=== PATIENT | female | born 1995 | race Caucasian/White ===

== ENCOUNTER → 2016-07-09 | Outpatient (CLI) | payer OTHER | LOC: RAD 16:11 | PROVIDERS: ATTEND Physician Assistant | DX: N92.1 Excessive and frequent menstruation with irregular cycle (principal) | CPT/HCPCS: 76830; 76856 ==

== ENCOUNTER 2016-09-29 06:34 | Day surgery (SDC) | payer OTHER ==
[2016-09-23 11:40] LABS: HEMATOCRIT 42.3 % (36.0-47.0); HEMOGLOBIN 14.3 g/dL (12.0-15.5); HGB HCT DIFFERENCE 0.6; MEAN CORPUSCULAR HEMOGLOBIN 29.3 pg (27.0-33.4); MEAN CORPUSCULAR HGB CONC 33.7 g/dL (32.0-36.0); MEAN CORPUSCULAR VOLUME 87 fl (80-97); RED BLOOD COUNT 4.87 10^6/uL (3.72-5.28); RED CELL DISTRIBUTION WIDTH 13.1 % (11.5-14.0); WHITE BLOOD COUNT 9.4 10^3/uL (4.0-10.5)
[2016-09-23 11:45] LABS: APPEARANCE,URINE SLIGHTLY-CLOUDY; BILIRUBIN,URINE NEGATIVE (NEGATIVE); GLUCOSE, URINE NEGATIVE (NEGATIVE); KETONES,URINE NEGATIVE (NEGATIVE); LEUKOCYTE ESTERASE,URINE MODERATE (NEGATIVE); NITRITE,URINE NEGATIVE (NEGATIVE); PROTEIN,URINE NEGATIVE (NEGATIVE); URINE SPECIFIC GRAVITY 1.019; UROBILINOGEN,URINE NEGATIVE mg/dL (<2.0)
[2016-09-23 12:32] LABS: THYROID STIMULATING HORMONE 2.53 uIU/mL (0.47-4.68)
[~2016-09-29 06:34] MED LIST: LACTATED RINGERS 1000 ML IV PRN; LIDOCAINE 0.5% INJ-PF (5 MG/ML) 50 ML SDV SUBCUT PRN
[2016-09-29] MEDS ORDERED: FENTANYL CITRATE INJ/PF 100 MCG/2 ML AMPUL ONE ×3 (08:17→09:44)
[2016-09-29] MEDS ORDERED: MIDAZOLAM 2 MG/2 ML INJ ONE (08:17)
[2016-09-29] MEDS ORDERED: PROPOFOL INJ 200 MG/20 ML VIAL IV ONE (08:17)
[2016-09-29] MEDS ORDERED: MEPERIDINE HCL/PF INJ 25 MG/1 ML DISP.SYRIN IV PRN (08:48)
[2016-09-29] MEDS ORDERED: ONDANSETRON HCL INJ/PF 4 MG/2 ML SDV IV PRN (08:48)
[2016-09-29] MEDS ORDERED: OXYCODONE-ACETAMINOPHEN 5-325 MG TABLET PO PRN ×4 (08:48→09:46)
[2016-09-29] MEDS ORDERED: DIPHENHYDRAMINE HCL 50 MG/ML VIAL IV PRN (08:48)
[2016-09-29] MEDS ORDERED: PROMETHAZINE HCL INJ 25 MG/1 ML VIAL IV PRN ×2 (08:48)
[2016-09-29] MEDS ORDERED: MORPHINE SULFATE 10 MG/ML INJ IV PRN (08:48)
[2016-09-29] MEDS ORDERED: FENTANYL CITRATE INJ/PF 100 MCG/2 ML AMPUL IV PRN ×3 (08:48)
[2016-09-29] MEDS: FENTANYL CITRATE INJ/PF 100 MCG/2 ML AMPUL ONE ×2 (09:30→09:35)
[2016-09-29] MEDS ORDERED: ACETAMINOPHEN 100 ML IV ONE (09:38)
--- NOTE | 2016-09-29 09:38 | OPERATIVE REPORT E ---
Operative Report NAME: KENDRICK PAUL : 1995 AGE: 21Y DATE OF SURGERY: 09/29/2016 ROOM: PREOPERATIVE DIAGNOSIS: Abnormal uterine bleeding refractory to medical management. POSTOPERATIVE DIAGNOSIS: Abnormal uterine bleeding refractory to medical management. OPERATION: 1. Hysteroscope. 2. D and C. SURGEON: FIDEL PORTILLO M.D. ANESTHESIA: Dr. Basilio with LMA. SPECIMENS REMOVED: Endometrial curettage. FINDINGS: Minimal endometrium with a uterine cavity that measured to 8 cm. COMPLICATIONS: None. ESTIMATED BLOOD LOSS: Was 10 mL. PROCEDURE IN DETAIL: The patient was taken to the operating room, prepared, and draped in normal sterile fashion in the dorsal lithotomy position. Under sterile conditions, the in and out cath was performed of approximately 100 mL of clear urine. A sterile speculum was then placed into the vagina and the cervix was prepped with Betadine. The cervix was then grasped on the anterior lip with a single-tooth tenaculum and uterine sound measured the uterus to approximately 8 cm. The cervix was then dilated up to 6 mm, and the hysteroscope was introduced with the above findings noted. Very little endometrium present. The endometrial cavity was very smooth and did not show any representation of malignancy at all. There was no rugation to the endometrial cavity and in fact, again, rodríguez were quite smooth so a decision was made to not do the MyoSure as I felt that this would probably not be fruitful based on the appearance of the endometrial cavity. However, I did do a relatively aggressive endometrial curettage with a Kevorkian curette with 3 passes. Hysteroscope was then reintroduced and the endometrial cavity was inspected once more with similar findings, but evidence of the curettage present, but no perforation and no evidence of uncontrolled bleeding. Instruments were then removed. Patient tolerated the procedure well. Sponge, lap, and needle counts were correct x2, and the patient was taken PACU in stable condition. DICTATING PHYSICIAN: FIDEL PORTILLO M.D. [id number] PHY#: [id number] ID: [id number] JOB#: [id number] ACCT: [id number] cc:FIDEL PORTILLO M.D. >
[2016-09-29] MEDS ORDERED: RINGERS SOLUTION,LACTATED 1,000 ML IV PRN (09:44)
[2016-09-29] MEDS ORDERED: MORPHINE SULFATE 10 MG/ML INJ IM PRN (09:45)
[2016-09-29] MEDS ORDERED: IBUPROFEN 800 MG TABLET PO PRN (09:45)
[2016-09-29 11:42] VITALS: BP 126/84
[2016-09-29] MEDS ORDERED: ONDANSETRON HCL INJ/PF 4 MG/2 ML SDV ONE (11:50)
[2016-09-29] MEDS ORDERED: KETOROLAC TROMETHAMINE 60 MG/2 ML SDV ONE (11:50)
[2016-09-29] MEDS ORDERED: LIDOCAINE 2% INJ-PF (20 MG/ML) 10 ML AMPUL ONE (11:50)
== END 2016-09-29 11:30 | disposition home or self-care (01) ==
LOC: OROUT 06:34
PROVIDERS: ATTEND Obstetrics & Gynecology
PROC: 0UDB8ZX Extraction of Endometrium, Via Natural or Artificial Opening Endoscopic, Diagnostic (ICD-10-PCS; principal; 2016-09-29 08:45)
DX: N93.9 Abnormal uterine and vaginal bleeding, unspecified (principal); E07.9 Disorder of thyroid, unspecified; Z79.899 Other long term (current) drug therapy; Z88.8 Allergy status to other drugs, medicaments and biological substances
CPT/HCPCS: 36415; 84439; 84443; 85027; 81025; 81001; 88305 ×2; 58558; J2250; J1885; J3010; J2405; J2704; J3490; J0131; 952